=== PATIENT | male | born 1965 | race Caucasian/White ===

== ENCOUNTER 2016-11-29 14:45 | Outpatient (RCR) | payer OTHER | END 2016-11-30 | disposition still patient (30) | LOC: WSPT | DX: M54.16 Radiculopathy, lumbar region (principal) | CPT/HCPCS: G8978-GP; G8979-GP ==

== ENCOUNTER 2016-12-09 13:45 | Outpatient (RCR) | payer OTHER | END 2016-12-21 08:29 | disposition home or self-care (01) | LOC: WSPT 13:45 | DX: M51.16 Intervertebral disc disorders with radiculopathy, lumbar region (principal) | CPT/HCPCS: G8979-GP; G8980-GP ==